=== PATIENT | male | born 1940 | race Caucasian/White ===

== ENCOUNTER 2018-06-18 12:59 | Inpatient (IN) | payer MEDICARE ==
[~2018-06-18] VITALS: Ht 177.8 cm; Wt 90.0 kg
[2018-06-18] VITALS (14 sets, daily range): BP systolic 88–133; BP diastolic 45–96
[2018-06-18] MEDS ORDERED: TAMS-1 PO (13:36)
[2018-06-18] MEDS ORDERED: ASPI-1182 PO (13:36)
[2018-06-18] MEDS ORDERED: DSS100 PO (13:36)
[2018-06-18] MEDS ORDERED: OXCA300T29 PO (13:36)
[2018-06-18] MEDS ORDERED: ATOR40TA28 PO (13:36)
[2018-06-18] MEDS ORDERED: QUET25TA PO (13:36)
[2018-06-18] MEDS ORDERED: OLAN10TA3 PO (13:36)
[2018-06-18] MEDS ORDERED: ACET-2247 PO (13:36)
[2018-06-18] MEDS ORDERED: AMLO-511 PO (13:36)
[2018-06-18] MEDS ORDERED: LOSA25TA41 PO (13:36)
[2018-06-18] MEDS ORDERED: CEPH500 PO (13:36)
[2018-06-18] MEDS ORDERED: BISA5TAB12 PO (13:36)
[2018-06-18] MEDS ORDERED: METO50 PO (13:36)
[2018-06-18] MEDS ORDERED: FINA5TAB41 PO (13:36)
[2018-06-18] MEDS ORDERED: RIVA20TA PO (13:36)
[2018-06-18] MEDS ORDERED: SODIUM CHLORIDE 0.9% 1,000 ML IV ONE ×2 (13:46→15:30)
[2018-06-18] MEDS ORDERED: ETOMIDATE 2 MG/ML 10 ML VIAL IVP ONE (14:00)
[2018-06-18] MEDS ORDERED: SUCCINYLCHOLINE CHLORIDE 20 MG/ML 10 ML VIAL IVP ONE (14:00)
[2018-06-18] MEDS ORDERED: PROPOFOL 1000 MG/ISO-OSM 100 ML IV PRN (14:02)
[2018-06-18] MEDS ORDERED: PANTOPRAZOLE SODIUM 80 MG in SODIUM CHLORIDE 0.9% 100 ML IV SCH (14:15)
[2018-06-18] MEDS ORDERED: PANTOPRAZOLE SODIUM 40 MG/VIAL IVP ONE (14:15)
[2018-06-18 14:38] LABS: GLUCOSE,POINT OF CARE 136 MG/DL (70-110)
[2018-06-18 14:51] LABS: EOSINOPHILS % (AUTO) 0 % (1.0-6.0); LYMPHOCYTES % (AUTO) 6.7 % (22.0-44.0); MEAN CORPUSCULAR HEMOGLOBIN 30.6 pg (26.0-34.0); MEAN CORPUSCULAR HGB CONC 31.3 G/dL (31.0-37.0); MEAN CORPUSCULAR VOLUME 98 fL (80-100); MONOCYTES # (AUTO) 1.9 K/uL (0.1-1.0); MONOCYTES % (AUTO) 6.5 % (2.0-9.0); NEUTROPHILS # (AUTO) 25.5 K/uL (1.8-7.7); PLATELET COUNT (AUTO) 550 K/uL (150-450); RED BLOOD CELL COUNT(AUTO) 1.26 MIL/uL (4.50-5.90); RED CELL DISTRIBUTION WIDTH 14.5 % (11.5-14.5)
[2018-06-18 14:55] LABS: ANION GAP 16 mmol/L (8-16); CALCIUM, TOTAL 7.5 mg/dL (8.8-10.5); CARBON DIOXIDE 19 mmol/L (22-29); CHLORIDE 111 mmol/L (98-107); CREATININE 2.15 mg/dL (0.60-1.30); GLOMERULAR FILTR. RATE CALC 30 mL/min (>60); GLUCOSE,RANDOM 142 mg/dL (70-110); HEMATOCRIT 12.3 % (41-53); HEMOGLOBIN 3.8 g/dL (13.5-17.5); NEUTROPHILS % (AUTO) 86.8 % (40.0-70.0); POTASSIUM 4.6 mmol/L (3.5-5.1); SODIUM SERUM 146 mmol/L (136-145); UREA NITROGEN, BLOOD 86 mg/dL (7-18)
[2018-06-18 14:56] LABS: PROTHROMBIN TIME 55.5 SEC (9.4-11.6)
[2018-06-18] MEDS ORDERED: NOREPINEPHRINE 4 MG/D5%-WATER 250 ML IV PRN ×2 (15:18→21:18)
[2018-06-18 15:20] LABS: ALANINE AMINOTRANSFERASE 89 U/L (12-78); ALBUMIN 1.8 g/dL (3.4-5.0); ALKALINE PHOSPHATASE 46 U/L (46-116); ASPARTATE AMINOTRANSFERASE 72 U/L (15-37); BILIRUBIN,TOTAL 0.4 mg/dL (0.1-1.0); CREATINE KINASE, TOTAL ONLY 140 U/L (39-308); TOTAL PROTEIN, SERUM 4.3 g/dL (6.4-8.2)
[2018-06-18 15:35] LABS: INR 5.7 (0.9-1.1)
[2018-06-18] MEDS ORDERED: SODIUM CHLORIDE 0.9% 250 ML IV ONE ×5 (15:41→22:06)
[2018-06-18] MEDS ORDERED: DEXTROSE 5% IV ONE (15:45)
[2018-06-18] MEDS ORDERED: DESMOPRESSIN ACETATE 30 MCG in SODIUM CHLORIDE 0.9% 50 ML IV ONE (15:45)
[2018-06-18] MEDS ORDERED: WATER IV ONE (15:45)
[2018-06-18] MEDS ORDERED: TRANEXAMIC ACID IV ONE (15:45)
[2018-06-18 16:19] LABS: ABG A-A DIFF O2 422.7 mmHg (10-20.0); ABG BASE EXCESS -10.4 mmol/L (-2.0-3.0); ABG CARBOXYHEMOGLOBIN 0.9 % (0.0-1.5); ABG HCO3 16.4 mmol/L (22.0-26.0); ABG METHEMOGLOBIN 0.3 % (0.0-1.5); ABG OXYHEMOGLOBIN 97.8 % (94.0-100.0); ABG PCO2 28 mmHg (35-45); ABG PH 7.356 (7.35-7.450); PO2, ARTERIAL BG 264.1 mmHg (75.0-83.0); SOURCE, BLOOD GAS ARTERIAL; TEMPERATURE, FAHRENHEIT, BG 97.5 FAHREN (96.0-98.6)
[2018-06-18 16:21] LABS: ABG TOTAL HEMOGLOBIN 3.8 G/dL (12.0-18.0); O2 DEVICE,BLOOD GAS VENTILATOR (ROOM AIR); PEEP,BG 0 cm H2O; SITE, BLOOD GAS RT RADIAL; VT, ABG 550 ml
[2018-06-18] MEDS ORDERED: ONDANSETRON HCL 4 MG/2 ML VIAL IVP PRN ×2 (17:00→21:45)
[2018-06-18 17:11] LABS: APPEARANCE,URINE CLOUDY (CLEAR); BILIRUBIN,URINE NEGATIVE (NEGATIVE); GLUCOSE, URINE (UA) NEGATIVE (NEGATIVE); KETONES,URINE NEGATIVE (NEGATIVE); LEUKOCYTE ESTERASE ,URINE MODERATE (NEGATIVE); NITRATE,URINE NEGATIVE (NEGATIVE); OCCULT BLOOD,URINE NEGATIVE (NEGATIVE); PROTEIN,URINE NEGATIVE (NEGATIVE); UROBILINOGEN,URINE 0.2 mg/dL (<=1.0)
[2018-06-18 17:22] LABS: RBC,URINE 0-2 /HPF (0-2)
[2018-06-18 17:23] LABS: BACTERIA,URINE Few /HPF (None Seen); SQUAMOUS EPITHELIAL CELL,UR Few /LPF (None Seen)
[2018-06-18] MEDS ORDERED: METOCLOPRAMIDE HCL 5 MG/ML 2 ML VIAL IVP ONE (18:00)
[2018-06-18] MEDS ORDERED: ZOLPIDEM TARTRATE 5 MG TABLET PO PRN (21:45)
[2018-06-18] MEDS ORDERED: MAGNESIUM HYDROXIDE SUSPENSION 30 ML UDCUP NG PRN (21:45)
[2018-06-18] MEDS ORDERED: IPRATROPIUM BROMIDE 0.5 MG/2.5 ML NEB SOLUTION NEB PRN (21:45)
[2018-06-18] MEDS ORDERED: ALBUTEROL SULFATE 2.5 MG/0.5 ML NEB SOLUTION NEB PRN (21:45)
[2018-06-18] MEDS ORDERED: MORPHINE SULFATE 2 MG/ML SYRINGE IVP PRN (21:45)
[2018-06-18] MEDS ORDERED: HYDROCODONE/ACETAMINOPHEN 5-325 MG TABLET PO PRN (21:45)
[2018-06-18] MEDS ORDERED: BISACODYL 10 MG RECTAL RECTAL SUPPOSITORY PR PRN (21:45)
[2018-06-18] MEDS ORDERED: HYDROCODONE/ACETAMINOPHEN 5-325 MG TABLET NG PRN (21:55)
[2018-06-18] MEDS ORDERED: ACETAMINOPHEN 650 MG/20.3 ML SOLUTION UDCUP NG PRN (22:00)
[2018-06-18] MEDS: PIPERACILLIN/TAZO 3.375 GM/D5W 50 ML IV SCH (22:10)
[2018-06-18] MEDS: PANTOPRAZOLE SODIUM 80 MG in SODIUM CHLORIDE 0.9% 100 ML IV SCH (23:48)
[2018-06-18] MEDS: PROPOFOL 1000 MG/ISO-OSM 100 ML IV PRN (23:48)
[2018-06-19] VITALS (22 sets, daily range): BP systolic 98–123; BP diastolic 48–69
[2018-06-19 00:44] LABS: HEMOGLOBIN 6.3 g/dL (13.5-17.5)
[2018-06-19 00:45] LABS: HEMATOCRIT 18.8 % (41-53)
[2018-06-19 01:02] LABS: INR 1.7 (0.9-1.1); PROTHROMBIN TIME 17.9 SEC (9.4-11.6)
[2018-06-19] MEDS: PIPERACILLIN/TAZO 3.375 GM/D5W 50 ML IV SCH ×4 (04:11→21:50)
[2018-06-19] MEDS: PROPOFOL 1000 MG/ISO-OSM 100 ML IV PRN (04:11)
[2018-06-19 08:51] LABS: HEMATOCRIT 21.5 % (41-53); HEMOGLOBIN 7.3 g/dL (13.5-17.5); MEAN CORPUSCULAR HEMOGLOBIN 30.4 pg (26.0-34.0); MEAN CORPUSCULAR HGB CONC 34.1 G/dL (31.0-37.0); MEAN CORPUSCULAR VOLUME 89 fL (80-100); PLATELET COUNT (AUTO) 345 K/uL (150-450); RED BLOOD CELL COUNT(AUTO) 2.41 MIL/uL (4.50-5.90); RED CELL DISTRIBUTION WIDTH 14.2 % (11.5-14.5)
[2018-06-19 08:54] LABS: BILIRUBIN,TOTAL 0.5 mg/dL (0.1-1.0); CALCIUM, TOTAL 7.2 mg/dL (8.8-10.5); CREATININE 1.44 mg/dL (0.60-1.30); POTASSIUM 3.5 mmol/L (3.5-5.1); TOTAL PROTEIN, SERUM 4.6 g/dL (6.4-8.2)
[2018-06-19] MEDS: DOCUSATE SODIUM 100 MG CAPSULE NG SCH ×2 (09:00→19:17)
[2018-06-19 09:34] LABS: BAND NEUTROPHILS % (MANUAL) 0 % (0-5)
[2018-06-19 09:37] LABS: LYMPHOCYTES % (MANUAL) 10 % (22-44); METAMYELOCYTES % 1 % (0-0); MONOCYTES % (MANUAL) 4 % (2-9); SEGMENTED NEUTROPHILS % 85 % (40-70)
[2018-06-19 09:38] LABS: PLATELET MORPHOLOGY COMMENT LARGE PLTS PRESENT
[2018-06-19] MEDS ORDERED: SODIUM CHLORIDE 0.9% 250 ML IV ONE (10:12)
[2018-06-19] MEDS: PANTOPRAZOLE SODIUM 80 MG in SODIUM CHLORIDE 0.9% 100 ML IV SCH ×2 (10:59→20:09)
[2018-06-19] MEDS ORDERED: PROPOFOL 1000 MG/ISO-OSM 100 ML IV PRN ×2 (12:09→12:41)
[2018-06-19 14:31] LABS: HEMATOCRIT 22.2 % (41-53); HEMOGLOBIN 7.5 g/dL (13.5-17.5)
[2018-06-19 15:36] LABS: ABG A-A DIFF O2 94.9 mmHg (10-20.0); ABG BASE EXCESS 0.6 mmol/L (-2.0-3.0); ABG CARBOXYHEMOGLOBIN 0.2 % (0.0-1.5); ABG HCO3 25.1 mmol/L (22.0-26.0); ABG METHEMOGLOBIN 0.3 % (0.0-1.5); ABG OXYGEN CONTENT 11.5 mL/dL (15.0-23.0); ABG OXYGEN SATURATION 98.2 % (95.0-98.0); ABG OXYHEMOGLOBIN 97.7 % (94.0-100.0); ABG PCO2 35 mmHg (35-45); ABG PH 7.458 (7.35-7.450); ABG TOTAL HEMOGLOBIN 8.1 G/dL (12.0-18.0); O2 DEVICE,BLOOD GAS VENTILATOR (ROOM AIR); PO2, ARTERIAL BG 149.7 mmHg (75.0-83.0); SITE, BLOOD GAS LFT RADIAL; SOURCE, BLOOD GAS ARTERIAL; TEMPERATURE, FAHRENHEIT, BG 98.6 FAHREN (96.0-98.6)
[2018-06-19 15:37] LABS: PEEP,BG 5 cm H2O; PRESSURE SUPPORT, BG 8 cm H2O; VENT MODE, BG SPONTANEOUS (ROOM AIR)
[2018-06-20] VITALS: BP 96/41
[2018-06-20] MEDS: PIPERACILLIN/TAZO 3.375 GM/D5W 50 ML IV SCH ×4 (03:46→21:13)
[2018-06-20 04:00] VITALS: BP 97/48
[2018-06-20 04:53] LABS: BASOPHILS % (AUTO) 0.3 % (0.0-2.0); EOSINOPHILS % (AUTO) 0.5 % (1.0-6.0); HEMATOCRIT 21.2 % (41-53); HEMOGLOBIN 7.1 g/dL (13.5-17.5); LYMPHOCYTES # (AUTO) 1.4 K/uL (1.0-4.8); LYMPHOCYTES % (AUTO) 9.4 % (22.0-44.0); MEAN CORPUSCULAR HEMOGLOBIN 30.5 pg (26.0-34.0); MEAN CORPUSCULAR HGB CONC 33.6 G/dL (31.0-37.0); MEAN CORPUSCULAR VOLUME 91 fL (80-100); MONOCYTES # (AUTO) 1.1 K/uL (0.1-1.0); MONOCYTES % (AUTO) 7.2 % (2.0-9.0); NEUTROPHILS # (AUTO) 12.1 K/uL (1.8-7.7); NEUTROPHILS % (AUTO) 82.6 % (40.0-70.0); PLATELET COUNT (AUTO) 282 K/uL (150-450); RED BLOOD CELL COUNT(AUTO) 2.33 MIL/uL (4.50-5.90); RED CELL DISTRIBUTION WIDTH 14.8 % (11.5-14.5)
[2018-06-20 05:00] LABS: ANION GAP 5 mmol/L (8-16); CALCIUM, TOTAL 7.4 mg/dL (8.8-10.5); CARBON DIOXIDE 29 mmol/L (22-29); CHLORIDE 118 mmol/L (98-107); CREATININE 0.93 mg/dL (0.60-1.30); GLOMERULAR FILTR. RATE CALC > 60 mL/min (>60); GLUCOSE,RANDOM 99 mg/dL (70-110); POTASSIUM 3.4 mmol/L (3.5-5.1); SODIUM SERUM 152 mmol/L (136-145); UREA NITROGEN, BLOOD 36 mg/dL (7-18)
[2018-06-20] MEDS: PANTOPRAZOLE SODIUM 80 MG in SODIUM CHLORIDE 0.9% 100 ML IV SCH ×2 (05:19→16:27)
[2018-06-20] MEDS: DOCUSATE SODIUM 100 MG CAPSULE NG SCH ×2 (07:21→21:00)
[2018-06-20 08:00] VITALS: BP 103/51
[2018-06-20 12:00] VITALS: BP 116/59
[2018-06-20 12:01] LABS: HEMATOCRIT 21.7 % (41-53); HEMOGLOBIN 7.3 g/dL (13.5-17.5)
[2018-06-20 12:23] LABS: INR 1.3 (0.9-1.1); PROTHROMBIN TIME 13.2 SEC (9.4-11.6)
[2018-06-20] MEDS ORDERED: DEXTROSE 5%-0.45% SODIUM CHL 1,000 ML IV ONE (12:30)
[2018-06-20] MEDS ORDERED: POTASSIUM CHLORIDE 20 MEQ ER TABLET PO PRN (12:30)
[2018-06-20] MEDS: POTASSIUM CHL 10 MEQ/WATER 50 ML IV PRN ×3 (13:11→15:20)
[2018-06-20 16:00] VITALS: BP 120/53
[2018-06-20 20:00] VITALS: BP 130/66
[2018-06-21] VITALS: BP 143/91
[2018-06-21] MEDS: PANTOPRAZOLE SODIUM 80 MG in SODIUM CHLORIDE 0.9% 100 ML IV SCH ×2 (02:25→11:38)
[2018-06-21 04:00] VITALS: BP 133/67
[2018-06-21] MEDS: PIPERACILLIN/TAZO 3.375 GM/D5W 50 ML IV SCH ×2 (04:05→09:47)
[2018-06-21 04:55] LABS: BASOPHILS % (AUTO) 0.1 % (0.0-2.0); EOSINOPHILS % (AUTO) 1.2 % (1.0-6.0); HEMATOCRIT 21.1 % (41-53); HEMOGLOBIN 7.2 g/dL (13.5-17.5); LYMPHOCYTES # (AUTO) 1.1 K/uL (1.0-4.8); LYMPHOCYTES % (AUTO) 11.5 % (22.0-44.0); MEAN CORPUSCULAR HEMOGLOBIN 31.5 pg (26.0-34.0); MEAN CORPUSCULAR HGB CONC 34.2 G/dL (31.0-37.0); MEAN CORPUSCULAR VOLUME 92 fL (80-100); MONOCYTES # (AUTO) 0.7 K/uL (0.1-1.0); MONOCYTES % (AUTO) 7.3 % (2.0-9.0); NEUTROPHILS # (AUTO) 7.7 K/uL (1.8-7.7); NEUTROPHILS % (AUTO) 79.9 % (40.0-70.0); PLATELET COUNT (AUTO) 254 K/uL (150-450); RED BLOOD CELL COUNT(AUTO) 2.29 MIL/uL (4.50-5.90); RED CELL DISTRIBUTION WIDTH 14.7 % (11.5-14.5)
[2018-06-21 05:10] LABS: ANION GAP 6 mmol/L (8-16); CALCIUM, TOTAL 7.5 mg/dL (8.8-10.5); CARBON DIOXIDE 29 mmol/L (22-29); CHLORIDE 113 mmol/L (98-107); CREATININE 0.77 mg/dL (0.60-1.30); GLOMERULAR FILTR. RATE CALC > 60 mL/min (>60); GLUCOSE,RANDOM 103 mg/dL (70-110); POTASSIUM 3.5 mmol/L (3.5-5.1); SODIUM SERUM 148 mmol/L (136-145); UREA NITROGEN, BLOOD 15 mg/dL (7-18)
[2018-06-21 08:00] VITALS: BP 125/67
[2018-06-21] MEDS: DOCUSATE SODIUM 100 MG CAPSULE NG SCH ×2 (09:00→21:00)
[2018-06-21] MEDS: DEXTROSE 5%-WATER 1,000 ML IV SCH (09:47)
[2018-06-21] MEDS ORDERED: SODIUM CHLORIDE 0.9% 1,000 ML IV ONE (09:51)
[2018-06-21] MEDS ORDERED: *CLINICAL-LEVOFLOXACIN IVPB DOSING CLINICAL ONE (10:00)
[2018-06-21 12:00] VITALS: BP 144/67
[2018-06-21] MEDS ORDERED: LEVOFLOXACIN 750 MG/D5% WATER 150 ML IV SCH (12:00)
[2018-06-21] MEDS ORDERED: LIDOCAINE/PF 2% 5 ML VIAL INJ ONE (12:00)
[2018-06-21] MEDS ORDERED: PROPOFOL 1% 20 ML VIAL IVP ONE (12:00)
[2018-06-21] MEDS ORDERED: EPINEPHrine 1:10,000 [1 MG/10 ML] SYRINGE ONE (13:46)
[2018-06-21 16:00] VITALS: BP 140/68
[2018-06-21 19:19] VITALS: BP 123/63
[2018-06-22 00:05] VITALS: BP 130/68
[2018-06-22] MEDS: DEXTROSE 5%-WATER 1,000 ML IV SCH (00:15)
[2018-06-22] MEDS: PANTOPRAZOLE SODIUM 80 MG in SODIUM CHLORIDE 0.9% 100 ML IV SCH ×3 (00:15→18:21)
[2018-06-22 05:09] VITALS: BP 142/66
[2018-06-22 06:04] LABS: BASOPHILS % (AUTO) 0.3 % (0.0-2.0); EOSINOPHILS % (AUTO) 2.5 % (1.0-6.0); HEMOGLOBIN 7.5 g/dL (13.5-17.5); LYMPHOCYTES # (AUTO) 1.2 K/uL (1.0-4.8); LYMPHOCYTES % (AUTO) 13.5 % (22.0-44.0); MEAN CORPUSCULAR HEMOGLOBIN 31.3 pg (26.0-34.0); MEAN CORPUSCULAR HGB CONC 34.2 G/dL (31.0-37.0); MEAN CORPUSCULAR VOLUME 92 fL (80-100); MONOCYTES # (AUTO) 0.6 K/uL (0.1-1.0); MONOCYTES % (AUTO) 7.4 % (2.0-9.0); NEUTROPHILS # (AUTO) 6.6 K/uL (1.8-7.7); NEUTROPHILS % (AUTO) 76.3 % (40.0-70.0); PLATELET COUNT (AUTO) 259 K/uL (150-450); RED CELL DISTRIBUTION WIDTH 14.5 % (11.5-14.5)
[2018-06-22 06:16] LABS: ANION GAP 2 mmol/L (8-16); CALCIUM, TOTAL 7.6 mg/dL (8.8-10.5); CARBON DIOXIDE 31 mmol/L (22-29); CHLORIDE 105 mmol/L (98-107); CREATININE 0.61 mg/dL (0.60-1.30); GLUCOSE,RANDOM 103 mg/dL (70-110); POTASSIUM 3.2 mmol/L (3.5-5.1); SODIUM SERUM 138 mmol/L (136-145); UREA NITROGEN, BLOOD 6 mg/dL (7-18)
[2018-06-22 06:36] LABS: GLOMERULAR FILTR. RATE CALC > 60 mL/min (>60)
[2018-06-22 07:52] VITALS: BP 149/68
[2018-06-22] MEDS: DOCUSATE SODIUM 100 MG CAPSULE NG SCH ×2 (08:26→19:55)
[2018-06-22 11:25] VITALS: BP 107/64
[2018-06-22 15:20] VITALS: BP 120/65
[2018-06-22 19:32] VITALS: BP 144/72
[2018-06-23] VITALS (7 sets, daily range): BP systolic 118–134; BP diastolic 64–81
[2018-06-23] MEDS: PANTOPRAZOLE SODIUM 80 MG in SODIUM CHLORIDE 0.9% 100 ML IV SCH ×2 (04:12→14:37)
[2018-06-23] MEDS: DULoxetine HCL 20 MG CAPSULE PO SCH (08:27)
[2018-06-23] MEDS: DOCUSATE SODIUM 100 MG CAPSULE NG SCH ×2 (09:00→20:59)
[2018-06-23] MEDS ORDERED: SODIUM CHLORIDE 0.9% 250 ML IV ONE (14:31)
[2018-06-24] MEDS: PANTOPRAZOLE SODIUM 80 MG in SODIUM CHLORIDE 0.9% 100 ML IV SCH (00:18)
[2018-06-24 04:31] VITALS: BP 131/66
[2018-06-24 07:20] LABS: BASOPHILS % (AUTO) 0.1 % (0.0-2.0); EOSINOPHILS % (AUTO) 0.6 % (1.0-6.0); HEMATOCRIT 27.1 % (41-53); LYMPHOCYTES # (AUTO) 0.9 K/uL (1.0-4.8); LYMPHOCYTES % (AUTO) 8.1 % (22.0-44.0); MEAN CORPUSCULAR HEMOGLOBIN 30.9 pg (26.0-34.0); MEAN CORPUSCULAR HGB CONC 33.3 G/dL (31.0-37.0); MEAN CORPUSCULAR VOLUME 93 fL (80-100); MONOCYTES # (AUTO) 0.7 K/uL (0.1-1.0); MONOCYTES % (AUTO) 6.3 % (2.0-9.0); NEUTROPHILS % (AUTO) 84.9 % (40.0-70.0); PLATELET COUNT (AUTO) 295 K/uL (150-450); RED BLOOD CELL COUNT(AUTO) 2.92 MIL/uL (4.50-5.90); RED CELL DISTRIBUTION WIDTH 15.4 % (11.5-14.5)
[2018-06-24 07:25] VITALS: BP 141/81
[2018-06-24] MEDS: DULoxetine HCL 20 MG CAPSULE PO SCH (08:31)
[2018-06-24] MEDS: DOCUSATE SODIUM 100 MG CAPSULE NG SCH ×2 (08:32→20:14)
[2018-06-24] MEDS ORDERED: DEXTROSE 5%-0.45% SODIUM CHL 1,000 ML IV ONE (10:00)
[2018-06-24 11:01] VITALS: BP 125/72
[2018-06-24 16:31] VITALS: BP 123/95
[2018-06-24] MEDS: PANTOPRAZOLE SODIUM 40 MG/VIAL IVP SCH (20:14)
[2018-06-24 21:55] VITALS: BP 118/57
[2018-06-25 00:18] VITALS: BP 120/72
[2018-06-25 05:25] VITALS: BP 131/79
[2018-06-25 07:27] VITALS: BP 124/66
[2018-06-25] MEDS: DOCUSATE SODIUM 100 MG CAPSULE NG SCH (08:56)
[2018-06-25] MEDS: DULoxetine HCL 20 MG CAPSULE PO SCH (08:56)
[2018-06-25] MEDS: PANTOPRAZOLE SODIUM 40 MG/VIAL IVP SCH (08:56)
[2018-06-25] MEDS ORDERED: PANT40TA25 PO (10:21)
[2018-06-25 11:31] VITALS: BP 141/67
== END 2018-06-25 12:40 | disposition home or self-care (01) | DRG 871 ==
LOC: EMS 13:00 → ICU 16:39 → 6N 06-21 18:40 → 5N 06-24 18:35
PROVIDERS: ADMIT Hospitalist; ATTEND Hospitalist
PROC: 0BH17EZ Insertion of Endotracheal Airway into Trachea, Via Natural or Artificial Opening (ICD-10-PCS; 2018-06-18)
PROC: 3E0G8GC Introduction of Other Therapeutic Substance into Upper GI, Via Natural or Artificial Opening Endoscopic (ICD-10-PCS; 2018-06-18)
PROC: 0DJ08ZZ Inspection of Upper Intestinal Tract, Via Natural or Artificial Opening Endoscopic (ICD-10-PCS; 2018-06-18)
PROC: 30233L1 Transfusion of Nonautologous Fresh Plasma into Peripheral Vein, Percutaneous Approach (ICD-10-PCS; 2018-06-18)
PROC: 30233N1 Transfusion of Nonautologous Red Blood Cells into Peripheral Vein, Percutaneous Approach (ICD-10-PCS; 2018-06-18)
PROC: 30233K1 Transfusion of Nonautologous Frozen Plasma into Peripheral Vein, Percutaneous Approach (ICD-10-PCS; 2018-06-18)
PROC: 5A09357 Assistance with Respiratory Ventilation, Less than 24 Consecutive Hours, Continuous Positive Airway Pressure (ICD-10-PCS; 2018-06-18)
PROC: 5A1935Z Respiratory Ventilation, Less than 24 Consecutive Hours (ICD-10-PCS; principal; 2018-06-18 18:30)
PROC: 0W3P8ZZ Control Bleeding in Gastrointestinal Tract, Via Natural or Artificial Opening Endoscopic (ICD-10-PCS; 2018-06-21)
PROC: 3E0G8GC Introduction of Other Therapeutic Substance into Upper GI, Via Natural or Artificial Opening Endoscopic (ICD-10-PCS; 2018-06-21)
PROC: 05HY33Z Insertion of Infusion Device into Upper Vein, Percutaneous Approach (ICD-10-PCS; 2018-06-21)
PROC: B54MZZA Ultrasonography of Right Upper Extremity Veins, Guidance (ICD-10-PCS; 2018-06-21)
DX: A41.9 Sepsis, unspecified organism (principal); E43 Unspecified severe protein-calorie malnutrition; K26.4 Chronic or unspecified duodenal ulcer with hemorrhage; K22.11 Ulcer of esophagus with bleeding; J96.00 Acute respiratory failure, unspecified whether with hypoxia or hypercapnia; R57.8 Other shock; E87.0 Hyperosmolality and hypernatremia; N17.9 Acute kidney failure, unspecified; D62 Acute posthemorrhagic anemia; D68.9 Coagulation defect, unspecified; I69.354 Hemiplegia and hemiparesis following cerebral infarction affecting left non-dominant side; K22.10 Ulcer of esophagus without bleeding; Z99.11 Dependence on respirator [ventilator] status; R74.0 Nonspecific elevation of levels of transaminase and lactic acid dehydrogenase [LDH]; I48.91 Unspecified atrial fibrillation; F32.9 Major depressive disorder, single episode, unspecified; I10 Essential (primary) hypertension; K22.2 Esophageal obstruction; R62.7 Adult failure to thrive; Z66 Do not resuscitate; Z79.01 Long term (current) use of anticoagulants; Z79.02 Long term (current) use of antithrombotics/antiplatelets; Z91.19 Patient's noncompliance with other medical treatment and regimen; Z95.0 Presence of cardiac pacemaker; Z68.28 Body mass index [BMI] 28.0-28.9, adult
CPT/HCPCS: 31500; 36245; 36430; 36556; 36569; 36600; 51702; 70450; 74176; 76937; 82805; 83605; 83735; 84132; 85014; 85018; 86850; 86900; 86901; 86920; 86927; 87040; 87070; 87081; 87086; 87205; 92610; 93005; 94003; 97162; 97167; 97530; 97535; 99291; 99292; C9113; G0378; J0171; J0330; J1956; J2543; J2597; J2704; J2765; J3480; J3490; J7030; J7050; J7060; P9016; P9017